=== PATIENT | female | born 1985 | race Caucasian/White ===

== ENCOUNTER → 2022-02-16 | Outpatient (CLI) | payer BC, OTHER | LOC: LAB 13:17 | DX: U07.1 COVID-19 (principal) | CPT/HCPCS: U0002 ==

== ENCOUNTER → 2022-03-09 | Outpatient (CLI) | payer BC, OTHER | LOC: EXRD 08:27 | DX: M54.50 Low back pain, unspecified (principal); M54.2 Cervicalgia; R05.9 Cough, unspecified; M51.35 Other intervertebral disc degeneration, thoracolumbar region | CPT/HCPCS: 71046; 72040; 72070; 72100; 73130 ==